=== PATIENT | male | born 1995 | race African-American/Black ===

== ENCOUNTER 2021-03-23 10:07 | Emergency (ER) | payer OTHER ==
[~2021-03-23] VITALS: Ht 175.3 cm; Wt 72.6 kg
[2021-03-23] MEDS ORDERED: AMOXICILLIN 50500 M1 PO (11:26)
[2021-03-23 11:47] VITALS: BP 128/40
== END 2021-03-23 11:47 | disposition home or self-care (01) ==
LOC: ER 10:07
DX: R07.81 Pleurodynia (principal); R05.9 Cough, unspecified